=== PATIENT | male | born 1980 | race Caucasian/White ===

== ENCOUNTER 2017-03-24 02:16 | Emergency (ER) | payer OTHER, MEDICAID ==
[~2017-03-24] VITALS: Ht 188 cm; Wt 150.0 kg
[2017-03-24 02:21] VITALS: BP 217/116; PULSE 92; RESP 20; TEMP 99.7; O2SAT 98
[2017-03-24] MEDS ORDERED: SODIUM CHLOR 0.9% 1000 ML INJ 1,000 ML IV SCH (02:27)
[2017-03-24] MEDS ORDERED: SODIUM CHLORIDE 0.9% FLUSH 10 ML FLUSH IV FLUSH PRN (02:30)
[2017-03-24] MEDS ORDERED: ONDANSETRON HCL 4 MG/2 ML VIAL IVP ONE (02:30)
[2017-03-24] MEDS ORDERED: MORPHINE SULFATE 4 MG/ML INJ IV PUSH ONE ×2 (02:30→03:00)
--- NOTE | 2017-03-24 02:31 | PD ---
HPI Chief Complaint: Flank/Kidney Pain Time Seen by Provider: 02:22 Travel History International Travel<30 days: No Contact w/Intl Traveler<30days: No Traveled to known affect area: No History of Present Illness HPI The patient is a 37-year-old male who presents to the emergency department via EMS for right flank pain. The patient states he was diagnosed with a kidney stone 2 weeks ago and was seen at [facility]. The patient followed up with urologist, Dr. Meyer, and was scheduled for an outpatient x-ray to be performed today to evaluate the kidney stone. The patient states he kidney stone was measured at 7 mm, thinks it was distal in the ureter. The pain is sharp, located lower back and radiating to the flank and into the right testicle. The patient denies any testicular swelling, dysuria, frequency, urgency, or hematuria. He does complain of mild nausea related to the pain but denies any vomiting. Symptoms are moderate, possibly exacerbated by kidney stone, and there are no current alleviating factors. 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) Tetanus Vaccination: Unknown Influenza Vaccination: No Past Surgical History Narrative Surgical Low back surgery Social History Alcohol Use: No Tobacco Use: No (uses electronic cigarette) Substance Use: No Allergies-Medications (Allergen,Severity, Reaction): Coded Allergies: No Known Allergies (Unverified , 03/22/17) Reported Meds & Prescriptions Reported Meds & Active Scripts Active No Active Prescriptions or Reported Medications Review of Systems Except as stated in HPI: all other systems reviewed are Neg General / Constitutional: No: Fever Cardiovascular: No: Chest Pain or Discomfort Respiratory: No: Shortness of Breath Gastrointestinal: Positive: Nausea, Abdominal Pain, No: Vomiting Genitourinary: Positive: Flank Pain, No: Urgency, Frequency, Dysuria, Hematuria Physical Exam Narrative GENERAL: Awake, alert, pleasant 37-year-old male who appears his stated age and is in no acute respiratory distress. SKIN: Focused skin assessment warm/dry. HEAD: Atraumatic. Normocephalic. EYES: No injection or drainage. ENT: No nasal bleeding or discharge. Mucous membranes pink and moist. NECK: Trachea midline. No JVD. CARDIOVASCULAR: Regular rate and rhythm. No murmur appreciated. RESPIRATORY: No accessory muscle use. Clear to auscultation. Breath sounds equal bilaterally. GASTROINTESTINAL: Abdomen soft, tender palpation right lower quadrant and suprapubic. Back: No CVA tenderness. Mild right flank tenderness. MUSCULOSKELETAL: No obvious deformities. No clubbing. No cyanosis. No edema. NEUROLOGICAL: Awake and alert. No obvious cranial nerve deficits. Motor grossly within normal limits. Normal speech. PSYCHIATRIC: Appropriate mood and affect; insight and judgment normal. Data Data Last Documented VS Vital Signs Date Time Temp Pulse Resp B/P (MAP) Pulse Ox O2 Delivery O2 Flow Rate FiO2 03/24/17 02:58 81 18 196/95 (128) 99 Room Air 03/24/17 02:21 99.7 Orders Orders Basic Metabolic Panel (Bmp) (03/24/17 02:27) Complete Blood Count With Diff (03/24/17 02:27) Urinalysis - C+S If Indicated (03/24/17 02:27) Ct Abd/Pel W/O Iv Contrast (03/24/17 02:27) Iv Access Insert/Monitor (03/24/17 02:27) Ecg Monitoring (03/24/17 02:27) Oximetry (03/24/17 02:27) Morphine Inj (Morphine Inj) (03/24/17 02:30) Ondansetron Inj (Zofran Inj) (03/24/17 02:30) Sodium Chlor 0.9% 1000 Ml Inj (Ns 1000 M (03/24/17 02:27) Sodium Chloride 0.9% Flush (Ns Flush) (03/24/17 02:30) Ketorolac Inj (Toradol Inj) (03/24/17 02:45) Morphine Inj (Morphine Inj) (03/24/17 03:00) Labs Laboratory Tests Test 03/24/17 02:30 03/24/17 03:05 White Blood Count 16.7 TH/MM3 Red Blood Count 4.98 MIL/MM3 Hemoglobin 13.1 GM/DL Hematocrit 39.8 % Mean Corpuscular Volume 80.0 FL Mean Corpuscular Hemoglobin 26.4 PG Mean Corpuscular Hemoglobin Concent 33.0 % Red Cell Distribution Width 14.4 % Platelet Count 307 TH/MM3 Mean Platelet Volume 8.2 FL Neutrophils (%) (Auto) 75.4 % Lymphocytes (%) (Auto) 14.4 % Monocytes (%) (Auto) 8.5 % Eosinophils (%) (Auto) 1.4 % Basophils (%) (Auto) 0.3 % Neutrophils # (Auto) 12.6 TH/MM3 Lymphocytes # (Auto) 2.4 TH/MM3 Monocytes # (Auto) 1.4 TH/MM3 Eosinophils # (Auto) 0.2 TH/MM3 Basophils # (Auto) 0.0 TH/MM3 CBC Comment DIFF FINAL Differential Comment Blood Urea Nitrogen 12 MG/DL Creatinine 1.24 MG/DL Random Glucose 127 MG/DL Calcium Level 8.8 MG/DL Sodium Level 138 MEQ/L Potassium Level 3.4 MEQ/L Chloride Level 104 MEQ/L Carbon Dioxide Level 29.6 MEQ/L Anion Gap 4 MEQ/L Estimat Glomerular Filtration Rate 66 ML/MIN Urine Color LIGHT-YELLOW Urine Turbidity CLEAR Urine pH 6.5 Urine Specific [place] 1.009 Urine Protein NEG mg/dL Urine Glucose (UA) NEG mg/dL Urine Ketones NEG mg/dL Urine Occult Blood SMALL Urine Nitrite NEG Urine Bilirubin NEG Urine Urobilinogen LESS THAN 2.0 MG/DL Urine Leukocyte Esterase NEG Urine RBC 36 /hpf Urine WBC 1 /hpf Urine Mucus FEW /lpf Microscopic Urinalysis Comment CULT NOT INDICATED MDM Medical Decision Making Medical Screen Exam Complete: Yes Emergency Medical Condition: Yes Medical Record Reviewed: Yes Interpretation(s) Laboratory Tests Test 03/24/17 02:30 03/24/17 03:05 White Blood Count 16.7 TH/MM3 Red Blood Count 4.98 MIL/MM3 Hemoglobin 13.1 GM/DL Hematocrit 39.8 % Mean Corpuscular Volume 80.0 FL Mean Corpuscular Hemoglobin 26.4 PG Mean Corpuscular Hemoglobin Concent 33.0 % Red Cell Distribution Width 14.4 % Platelet Count 307 TH/MM3 Mean Platelet Volume 8.2 FL Neutrophils (%) (Auto) 75.4 % Lymphocytes (%) (Auto) 14.4 % Monocytes (%) (Auto) 8.5 % Eosinophils (%) (Auto) 1.4 % Basophils (%) (Auto) 0.3 % Neutrophils # (Auto) 12.6 TH/MM3 Lymphocytes # (Auto) 2.4 TH/MM3 Monocytes # (Auto) 1.4 TH/MM3 Eosinophils # (Auto) 0.2 TH/MM3 Basophils # (Auto) 0.0 TH/MM3 CBC Comment DIFF FINAL Differential Comment Blood Urea Nitrogen 12 MG/DL Creatinine 1.24 MG/DL Random Glucose 127 MG/DL Calcium Level 8.8 MG/DL Sodium Level 138 MEQ/L Potassium Level 3.4 MEQ/L Chloride Level 104 MEQ/L Carbon Dioxide Level 29.6 MEQ/L Anion Gap 4 MEQ/L Estimat Glomerular Filtration Rate 66 ML/MIN Urine Color LIGHT-YELLOW Urine Turbidity CLEAR Urine pH 6.5 Urine Specific [place] 1.009 Urine Protein NEG mg/dL Urine Glucose (UA) NEG mg/dL Urine Ketones NEG mg/dL Urine Occult Blood SMALL Urine Nitrite NEG Urine Bilirubin NEG Urine Urobilinogen LESS THAN 2.0 MG/DL Urine Leukocyte Esterase NEG Urine RBC 36 /hpf Urine WBC 1 /hpf Urine Mucus FEW /lpf Microscopic Urinalysis Comment CULT NOT INDICATED Last Impressions Abdomen/Pelvis CT 03/24/17 0227 Signed Impressions: Service Date/Time: Friday, March 24, 2017 02:26 - CONCLUSION: 1. 4 mm obstructing stone distal one third right ureter with moderate severity hydronephrosis. Adis Martins MD Differential Diagnosis Differential diagnosis includes nephrolithiasis, hydronephrosis, pyelonephritis , testicular torsion, atypical appendicitis, diverticulitis. Narrative Course IV was established, labs are drawn and sent, and the patient was placed on cardiac telemetry monitoring and continuous pulse oximetry monitoring. The patient was administered morphine, Zofran, Toradol, and IV fluids. Noncontrast CT of the abdomen and pelvis was obtained. UA reveals RBCs and blood, no evidence of infection. Creatinine is normal. CT reveals a 4 mm stone with moderate hydronephrosis. The morphine did improve the abdominal pain, however, the back pain continues. The patient was redosed with a second dose of morphine and continued to have pain. Therefore, the patient received Dilaudid 0.5 mg intravenously. Diagnosis Primary Impression: Nephrolithiasis Patient Instructions: General Instructions Additional Instructions: Please provide the patient a copy of his CT results and lab results at discharge. Pain medications as directed. Follow-up with your urologist, Dr. Meyer, today if possible. Med/Other Pt SpecificInfo: Prescription(s) given Scripts Tamsulosin (Flomax) 0.4 Mg Cap 0.4 MG PO HS for Manage Prostate Problems, #7 CAP 0 Refills Prov: Marques Gloria MD 03/24/17 Ibuprofen (Ibuprofen) 600 Mg Tab 600 MG PO Q6H Y for Pain/Inflammation, #20 TAB 0 Refills Prov: Marques Gloria MD 03/24/17 Oxycodone-Acetaminophen (Percocet) 2.5-325 mg Tab 1 TAB PO Q6H Y for PAIN SCALE 1 TO 10, #20 TAB 0 Refills Prov: Marques Gloria MD 03/24/17 Disposition: 01 DISCHARGE HOME Condition: Stable Marques Gloria MD Mar 24, 2017 02:31
[2017-03-24 02:43] LABS: AUTOMATED NEUTROPHIL # 12.6 TH/MM3 (1.8-7.7); BASOPHIL % 0.3 % (0.0-2.0); EOSINOPHIL # 0.2 TH/MM3 (0-0.4); EOSINOPHIL % 1.4 % (0.0-4.0); HEMATOCRIT 39.8 % (39.0-51.0); HEMO FLAGS DIFF FINAL; LYMPH % 14.4 % (9.0-44.0); LYMPHOCYTE # 2.4 TH/MM3 (1.0-4.8); MEAN CORPUSCULAR HEMOGLOBIN 26.4 PG (27.0-34.0); MONO % 8.5 % (0.0-8.0); NEUT % 75.4 % (16.0-70.0); PLATELET COUNT 307 TH/MM3 (150-450); RED BLOOD COUNT 4.98 MIL/MM3 (4.50-5.90); RED CELL DISTRIBUTION WIDTH 14.4 % (11.6-17.2); WHITE BLOOD COUNT 16.7 TH/MM3 (4.0-11.0)
[2017-03-24] MEDS ORDERED: KETOROLAC TROMETHAMINE 30 MG/ML (IVP) VIAL IV PUSH ONE (02:45)
[2017-03-24 02:57] LABS: BICARBONATE 29.6 MEQ/L (21.0-32.0); POTASSIUM 3.4 MEQ/L (3.5-5.1)
[2017-03-24 02:58] VITALS: BP 196/95; PULSE 81; RESP 18; O2SAT 99
--- NOTE | 2017-03-24 03:20 | RADRPT ---
EXAM DATE/TIME: 03/24/2017 02:26 [facility] COMPARISON: No previous studies available for comparison. INDICATIONS : Right flank pain. ORAL CONTRAST: No oral contrast ingested. RADIATION DOSE: 33.47 CTDIvol (mGy) ; High dose protocol; Patient body habitus MEDICAL HISTORY : Renal calculi. Hypertension. SURGICAL HISTORY : Lumbar surgery. ENCOUNTER: Initial ACUITY: 1 week PAIN SCALE: 8/10 LOCATION: Right flank TECHNIQUE: Volumetric scanning of the abdomen and pelvis was performed. Using automated exposure control and ad justment of the mA and/or kV according to patient size, radiation dose was kept as low as reasonably achievable to obtain optimal diagnostic quality images. DICOM format image data is available electro nically for review and comparison. FINDINGS: Right side: Moderate severity hydronephrosis and mild dilation of the right ureter to the distal one third where there is an obstructing 4 mm calcified stone. No additional calcified stones seen in the collecting system. Left side: No calcified stones, hydronephrosis, or dilation of the ureter. A 1.9 cm cyst lower pole. Bladder: No calcified stones. Smooth margins. Other: No dilated loops of small or large bowel. No gallstones. No free fluid. Multiple bilateral inguina l nodes measuring up to 1.9 cm. CONCLUSION: 1. 4 mm obstructing stone distal one third right ureter with moderate severity hydronephrosis. Adis Martins MD on March 24, 2017 at 3:13 Board Certified Radiologist. This report was verified electronically.
[2017-03-24 03:34] LABS: BLOOD, URINE SMALL (NEG); COMMENT (UR) CULT NOT INDICATED; CULTURE IF INDICATED CULT NOT INDICATED; GLUCOSE,URINE NEG (NEG); KETONE, URINE NEG (NEG); MUCUS URINE FEW /lpf (OCC); NITRITE,URINE NEG (NEG); PH, URINE 6.5 (5.0-8.5); URINE COLOR LIGHT-YELLOW (YELLW/STRAW)
[2017-03-24] MEDS ORDERED: IBUP-232 PO (03:48)
[2017-03-24] MEDS ORDERED: TAMS5CAP PO (03:48)
[2017-03-24] MEDS ORDERED: PERC2.5T PO (03:48)
[2017-03-24 03:53] VITALS: BP 168/79; PULSE 72; RESP 20; O2SAT 96
[2017-03-24] MEDS ORDERED: HYDROmorphone HCL PF 1 MG/ML VIAL IV PUSH ONE (04:00)
[2017-03-24 04:45] VITALS: BP 145/73
[2017-03-31] MEDS ORDERED: PERC5TAB12 PO (11:50)
[2017-03-31] MEDS ORDERED: CEPH-460 PO (11:50)
== END 2017-03-24 04:46 | disposition home or self-care (01) ==
LOC: NEPE 02:16
DX: N13.2 Hydronephrosis with renal and ureteral calculous obstruction (principal)
CPT/HCPCS: 74176; 80048; 81001; 85025; 96361; 96374; 96375; 96376; 99285; J1170; J1885; J2270; J2405; J7030

== ENCOUNTER 2017-03-31 19:58 | Emergency (ER) | payer OTHER, MEDICAID ==
[~2017-03-31 19:58] MED LIST changes: -CHLORHEXIDINE GLUCONATE 2 % 1 PACK (2 CLOTHS) TOPICAL PRN; -DEXAMETHASONE SOD PHOS 4 MG/ML VIAL IV ONE; -DO NOT ADM ANY ANTICOAGULANT DRUGS PRN; -FAMOTIDINE 20 MG/2 ML VIAL ONE; -GLYCOPYRROLATE 1 MG/5 ML SYRINGE IV PUSH ONE; -INSULIN HUMAN REGULAR 1,000 UNITS/10 ML VIAL SQ PRN; -IOHEXOL 350 MG/ML 50 ML BTL (for RAD DIAG) OTHER ONE; -LACTATED RINGER'S 1000 ML IV PRN; -LIDOCAINE HCL 1% PF 5 ML AMPULE OTHER ONE; -METOPROLOL TARTRATE 25 MG TAB PO PRN; -MIDAZOLAM HCL 2 MG/2 ML VIAL IV ONE; -NEOSTIGMINE 3 MG/3 ML SYR IV ONE; -ONDANSETRON HCL 4 MG/2 ML VIAL IV PUSH ONE; -ONDANSETRON HCL 4 MG/2 ML VIAL IV PUSH PRN; -POVIDONE IODINE 5% (ANTISEPSIS KIT) 4 APPLICATIONS EACH NARE PRN; -PROPOFOL 200 MG/20 ML AMP IV ONE; -ROCURONIUM INJ 50 MG/5 ML SYRINGE IV PUSH ONE; -SODIUM CHLORID 0.9% 500 ML IV PRN; -ceFAZolin 2 GM PREMIX 50 ML IV SCH; -oxyCODONE/ACETAMINOPHEN 5 MG/325 MG TAB PO PRN
[2017-03-31 20:00] VITALS: BP 220/100; PULSE 72; RESP 15; TEMP 98.3; O2SAT 96
[2017-03-31 21:46] VITALS: BP 188/95; PULSE 72; RESP 16; O2SAT 98
[2017-03-31] MEDS ORDERED: SODIUM CHLOR 0.9% 1000 ML INJ 1,000 ML IV SCH (21:51)
[2017-03-31] MEDS ORDERED: ONDANSETRON HCL 4 MG/2 ML VIAL IVP ONE (22:00)
[2017-03-31] MEDS ORDERED: SODIUM CHLORIDE 0.9% FLUSH 10 ML FLUSH IV FLUSH PRN (22:00)
[2017-03-31] MEDS ORDERED: MORPHINE SULFATE 4 MG/ML INJ IV PUSH ONE (22:00)
--- NOTE | 2017-03-31 22:08 | PD ---
HPI Chief Complaint: GI Complaint Time Seen by Provider: 21:43 Travel History International Travel<30 days: No Contact w/Intl Traveler<30days: No Traveled to known affect area: No History of Present Illness HPI Patient comes emergency Department complaining of abdominal pain and right flank pain status post having a procedure done today for renal calculi. Patient states that after the procedure he went home and has been having pain and vomiting since. Patient reports he has not been able to keep down any medication or anything else. Patient denies any blood in the vomit reports is nonbilious. Patient states he's had some hematuria since that he procedure. Patient describes pain is a sharp stabbing pain without radiation to his back and pressure-like in his abdomen without radiation. Denies anything making this better or worse. Patient states he called his urologist told him to the emergency department. Denies any fever, chest pain, shortness breath, headache , numbness or tingling anywhere. 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, LOWER BACK, OA) Neurologic: No Psychiatric: No Reproductive: No Respiratory: No Thyroid Disease: No Tetanus Vaccination: Unknown Influenza Vaccination: No ?: Not Past Surgical History Abdominal Surgery: No AICD: No Cardiac Surgery: No Ear Surgery: No Eye Surgery: No Genitourinary Surgery: Yes (CYSTOSCOPY/URETEROSCOPY) Joint Replacement: No Oral Surgery: No Pacemaker: No Thoracic Surgery: No Social History Alcohol Use: No Tobacco Use: No (uses electronic cigarette) Substance Use: No Allergies-Medications (Allergen,Severity, Reaction): Coded Allergies: No Known Allergies (Unverified , 03/31/17) Reported Meds & Prescriptions Reported Meds & Active Scripts Active Percocet (Oxycodone-Acetaminophen) 5-325 mg Tab 1-2 Tab PO Q6H PRN Flomax (Tamsulosin HCl) 0.4 Mg Cap 0.4 Mg PO HS Percocet (Oxycodone-Acetaminophen) 2.5-325 mg Tab 1 Tab PO Q6H PRN Review of Systems Except as stated in HPI: all other systems reviewed are Neg Physical Exam Narrative GENERAL: Well-developed, overly nourished, in no acute distress, and non-ill appearing. SKIN: Focused skin assessment warm and dry. HEAD: Atraumatic. Normocephalic. EYES: Pupils equal and round. EOMI. No scleral icterus. No injection or drainage. ENT: No nasal bleeding or discharge. Mucous membranes pink and moist. NECK: Trachea midline. Supple. No nuclear rigidity. CARDIOVASCULAR: Regular rate and rhythm. No murmur appreciated. RESPIRATORY: No accessory muscle use. No respiratory distress. Clear to auscultation. Breath sounds equal bilaterally. GASTROINTESTINAL: Abdomen soft, non-tender, nondistended, and no guarding. Hepatic and splenic margins not palpable. Normal bowel sounds 4. No pulsatile mass. Patient reports tenderness to right low back just inferior to CVA. MUSCULOSKELETAL: No obvious deformities. No clubbing. No cyanosis. No edema. Full range of motion. NEUROLOGICAL: Awake and alert. No obvious cranial nerve deficits. Motor grossly within normal limits. Normal speech. PSYCHIATRIC: Appropriate mood and affect; insight and judgment normal. Data Data Last Documented VS Vital Signs Date Time Temp Pulse Resp B/P (MAP) Pulse Ox O2 Delivery O2 Flow Rate FiO2 03/31/17 22:10 16 98 Room Air 03/31/17 21:46 72 03/31/17 20:00 98.3 Orders Orders Complete Blood Count With Diff (03/31/17 21:51) Comprehensive Metabolic Panel (03/31/17 21:51) Lipase (03/31/17 21:51) Prothrombin Time / Inr (Pt) (03/31/17 21:51) Act Partial Throm Time (Ptt) (03/31/17 21:51) Urinalysis - C+S If Indicated (03/31/17 21:51) Ct Abd/Pel W/O Iv Contrast (03/31/17 21:51) Iv Access Insert/Monitor (03/31/17 21:51) Ecg Monitoring (03/31/17 21:51) Oximetry (03/31/17 21:51) Morphine Inj (Morphine Inj) (03/31/17 22:00) Ondansetron Inj (Zofran Inj) (03/31/17 22:00) Sodium Chlor 0.9% 1000 Ml Inj (Ns 1000 M (03/31/17 21:51) Sodium Chloride 0.9% Flush (Ns Flush) (03/31/17 22:00) Labs Laboratory Tests Test 03/31/17 22:05 White Blood Count 17.3 TH/MM3 Red Blood Count 5.35 MIL/MM3 Hemoglobin 14.1 GM/DL Hematocrit 42.9 % Mean Corpuscular Volume 80.3 FL Mean Corpuscular Hemoglobin 26.4 PG Mean Corpuscular Hemoglobin Concent 32.8 % Red Cell Distribution Width 14.2 % Platelet Count 393 TH/MM3 Mean Platelet Volume 8.4 FL Neutrophils (%) (Auto) 84.9 % Lymphocytes (%) (Auto) 9.3 % Monocytes (%) (Auto) 5.6 % Eosinophils (%) (Auto) 0.0 % Basophils (%) (Auto) 0.2 % Neutrophils # (Auto) 14.7 TH/MM3 Lymphocytes # (Auto) 1.6 TH/MM3 Monocytes # (Auto) 1.0 TH/MM3 Eosinophils # (Auto) 0.0 TH/MM3 Basophils # (Auto) 0.0 TH/MM3 CBC Comment DIFF FINAL Differential Comment MDM Medical Decision Making Medical Screen Exam Complete: Yes Emergency Medical Condition: Yes Differential Diagnosis Abdominal pain, nausea vomiting, postop complication, electrolyte abnormality, dehydration, appendicitis, other Narrative Course Patient was seen and examined. Initial laboratory and radiological studies were ordered. Patient was given IV fluid, IV Zofran, IV morphine. Patient was signed out to Dr. Waite the end of my shift. Please see his documentation for final diagnosis and disposition. Jacob King Mar 31, 2017 22:08
[2017-03-31 22:10] VITALS: RESP 16; O2SAT 98
[2017-03-31 22:24] LABS: AUTOMATED NEUTROPHIL # 14.7 TH/MM3 (1.8-7.7); BASOPHIL % 0.2 % (0.0-2.0); HEMATOCRIT 42.9 % (39.0-51.0); HEMO FLAGS DIFF FINAL; LYMPH % 9.3 % (9.0-44.0); LYMPHOCYTE # 1.6 TH/MM3 (1.0-4.8); MEAN CELL VOLUME 80.3 FL (80.0-100.0); MEAN CORPUSCULAR HEMOGLOBIN 26.4 PG (27.0-34.0); MEAN CORPUSCULAR HGB CONC 32.8 % (32.0-36.0); MONO % 5.6 % (0.0-8.0); NEUT % 84.9 % (16.0-70.0); PLATELET COUNT 393 TH/MM3 (150-450); RED BLOOD COUNT 5.35 MIL/MM3 (4.50-5.90); RED CELL DISTRIBUTION WIDTH 14.2 % (11.6-17.2); WHITE BLOOD COUNT 17.3 TH/MM3 (4.0-11.0)
[2017-03-31 22:39] LABS: APTT (PATIENT) 26.8 SEC (24.3-30.1); PROTHROMBIN TIME - PATIENT 11.2 SEC (9.8-11.6)
[2017-03-31 22:48] LABS: ALT (GPT) 29 U/L (12-78)
[2017-03-31 22:51] LABS: ALKALINE PHOSPHATASE 68 U/L (45-117); TOTAL BILIRUBIN ADULT 0.8 MG/DL (0.2-1.0)
--- NOTE | 2017-03-31 23:01 | RADRPT ---
EXAM DATE/TIME: 03/31/2017 22:28 [facility] COMPARISON: CT ABDOMEN & PELVIS W/O CONTRAST, March 24, 2017, 2:26. INDICATIONS : Right flank pain with hematuria. Patient had cystoscopy and ureteroscopy done today. ORAL CONTRAST: No oral contrast ingested. RADIATION DOSE: 16.98 CTDIvol (mGy) MEDICAL HISTORY : Renal calculi. Hypertension. SURGICAL HISTORY : None. ENCOUNTER: Initial ACUITY: 1 day PAIN SCALE: 10/10 LOCATION: Right flank TECHNIQUE: Volumetric scanning of the abdomen and pelvis was performed. Using automated exposure control and ad justment of the mA and/or kV according to patient size, radiation dose was kept as low as reasonably achievable to obtain optimal diagnostic quality images. DICOM format image data is available electro nically for review and comparison. FINDINGS: LOWER LUNGS: The visualized lower lungs are clear. LIVER: Homogeneous density without lesion. There is no dilation of the biliary tree. No calcified gallston es. SPLEEN: Normal size without lesion. PANCREAS: Within normal limits. KIDNEYS: Previously seen right renal stone is no longer present but there is mild right hydronephrosis and hyd roureter, presumably residual or related to acute urothelial irritation. No mass or significant blood /clot demonstrated within the bladder. Left kidney and left ureter are normal. ADRENAL GLANDS: Within normal limits. VASCULAR: There is no aortic aneurysm. BOWEL/MESENTERY: The stomach, small bowel, and colon demonstrate no acute abnormality. There is no free intraperitone al air or fluid. ABDOMINAL WALL: Within normal limits. RETROPERITONEUM: There is no lymphadenopathy. BLADDER: No wall thickening or mass. REPRODUCTIVE: Within normal limits. INGUINAL: There is no lymphadenopathy or hernia. MUSCULOSKELETAL: Within normal limits for patient age. CONCLUSION: Right ureteral stone removed. Persistent hydronephrosis/hydroureter not significantly changed, danielle marmolejo Please see above. Mason Bauman MD on March 31, 2017 at 22:56 Board Certified Radiologist. This report was verified electronically.
[2017-03-31 23:04] LABS: ANION GAP 7 MEQ/L (5-15); AST (GOT) 21 U/L (15-37); BICARBONATE 26.6 MEQ/L (21.0-32.0); BLOOD UREA NITROGEN 15 MG/DL (7-18); CHLORIDE 102 MEQ/L (98-107); GLOMERULAR FILTRATION RATE 58 ML/MIN (>89); POTASSIUM 4.3 MEQ/L (3.5-5.1); SODIUM (NA) 136 MEQ/L (136-145)
[2017-04-01] MEDS ORDERED: MORPHINE SULFATE 4 MG/ML INJ IV PUSH ONE (00:45)
[2017-04-01 01:02] LABS: BACTERIA, URINE OCC /hpf; BLOOD, URINE LARGE (NEG); COMMENT (UR) CULTURE INDICATED; CULTURE IF INDICATED CULTURE INDICATED; GLUCOSE,URINE NEG (NEG); HYALINE CAST, URINE 5 /lpf (RARE); KETONE, URINE TRACE mg/dL (NEG); MUCUS URINE FEW /lpf (OCC); NITRITE,URINE NEG (NEG); PH, URINE 6.5 (5.0-8.5)
[2017-04-01 01:05] LABS: URINE COLOR LIGHT-RED (YELLW/STRAW)
--- NOTE | 2017-04-01 01:26 | PD ---
Data Data Last Documented VS Vital Signs Date Time Temp Pulse Resp B/P (MAP) Pulse Ox O2 Delivery O2 Flow Rate FiO2 03/31/17 22:10 16 98 Room Air 03/31/17 21:46 72 03/31/17 20:00 98.3 Orders Orders Complete Blood Count With Diff (03/31/17 21:51) Comprehensive Metabolic Panel (03/31/17 21:51) Lipase (03/31/17 21:51) Prothrombin Time / Inr (Pt) (03/31/17 21:51) Act Partial Throm Time (Ptt) (03/31/17 21:51) Urinalysis - C+S If Indicated (03/31/17 21:51) Ct Abd/Pel W/O Iv Contrast (03/31/17 21:51) Iv Access Insert/Monitor (03/31/17 21:51) Ecg Monitoring (03/31/17 21:51) Oximetry (03/31/17 21:51) Morphine Inj (Morphine Inj) (03/31/17 22:00) Ondansetron Inj (Zofran Inj) (03/31/17 22:00) Sodium Chlor 0.9% 1000 Ml Inj (Ns 1000 M (03/31/17 21:51) Sodium Chloride 0.9% Flush (Ns Flush) (03/31/17 22:00) Morphine Inj (Morphine Inj) (04/01/17 00:45) Urine Culture (04/01/17 00:10) Labs Laboratory Tests Test 03/31/17 22:05 04/01/17 00:10 White Blood Count 17.3 TH/MM3 Red Blood Count 5.35 MIL/MM3 Hemoglobin 14.1 GM/DL Hematocrit 42.9 % Mean Corpuscular Volume 80.3 FL Mean Corpuscular Hemoglobin 26.4 PG Mean Corpuscular Hemoglobin Concent 32.8 % Red Cell Distribution Width 14.2 % Platelet Count 393 TH/MM3 Mean Platelet Volume 8.4 FL Neutrophils (%) (Auto) 84.9 % Lymphocytes (%) (Auto) 9.3 % Monocytes (%) (Auto) 5.6 % Eosinophils (%) (Auto) 0.0 % Basophils (%) (Auto) 0.2 % Neutrophils # (Auto) 14.7 TH/MM3 Lymphocytes # (Auto) 1.6 TH/MM3 Monocytes # (Auto) 1.0 TH/MM3 Eosinophils # (Auto) 0.0 TH/MM3 Basophils # (Auto) 0.0 TH/MM3 CBC Comment DIFF FINAL Differential Comment Prothrombin Time 11.2 SEC Prothromb Time International Ratio 1.0 RATIO Activated Partial Thromboplast Time 26.8 SEC Blood Urea Nitrogen 15 MG/DL Creatinine 1.39 MG/DL Random Glucose 112 MG/DL Total Protein 8.8 GM/DL Albumin 4.0 GM/DL Calcium Level 9.1 MG/DL Alkaline Phosphatase 68 U/L Aspartate Amino Transf (AST/SGOT) 21 U/L Alanine Aminotransferase (ALT/SGPT) 29 U/L Total Bilirubin 0.8 MG/DL Sodium Level 136 MEQ/L Potassium Level 4.3 MEQ/L Chloride Level 102 MEQ/L Carbon Dioxide Level 26.6 MEQ/L Anion Gap 7 MEQ/L Estimat Glomerular Filtration Rate 58 ML/MIN Lipase 70 U/L Urine Color LIGHT-RED Urine Turbidity HAZY Urine pH 6.5 Urine Specific [place] 1.015 Urine Protein 30 mg/dL Urine Glucose (UA) NEG mg/dL Urine Ketones TRACE mg/dL Urine Occult Blood LARGE Urine Nitrite NEG Urine Bilirubin NEG Urine Urobilinogen LESS THAN 2.0 MG/DL Urine Leukocyte Esterase SMALL Urine RBC /hpf Urine WBC 53 /hpf Urine Bacteria OCC /hpf Urine Hyaline Casts 5 /lpf Urine Mucus FEW /lpf Microscopic Urinalysis Comment CULTURE INDICATED MDM Supervised Visit with RYDER: Yes Narrative Course The history, exam, and medical decision-making in the associated mid-level provider note were completed with my assistance. I reviewed and agree with the findings presented. I attest that I had a [id number] encounter with the patient on the same day, and personally performed and documented my assessment and findings in the medical record. *My assessment and Findings: 37-year-old man, status post removal of renal stone ureteroscopy today. Here with pain and vomiting. Looks well. No vomiting started been here. CT shows some persistent hydronephrosis. CBC was some leukocytosis. CMP unremarkable. Lipase is normal. UA with hematuria. Patient feeling improved. Recommend outpatient follow-up. Diagnosis Primary Impression: Flank pain Additional Instruction: Follow-up with your urologist in the next 2-4 days. The emergency department for any new or worsening symptoms. Med/Other Pt SpecificInfo: No Change to Meds Disposition: DISCHARGE HOME Condition: Stable Marcelino Waite MD Apr 01, 2017 01:26
== END 2017-04-01 02:21 | disposition home or self-care (01) ==
LOC: NEPE 19:58
DX: R10.9 Unspecified abdominal pain (principal); R11.10 Vomiting, unspecified; N13.30 Unspecified hydronephrosis; D72.829 Elevated white blood cell count, unspecified; R31.9 Hematuria, unspecified; M19.90 Unspecified osteoarthritis, unspecified site; I10 Essential (primary) hypertension; Z79.899 Other long term (current) drug therapy
CPT/HCPCS: 74176; 80053; 81001; 83690; 85025; 85610; 85730; 87086; 96361; 96374; 96375; 96376; 99285; J2270; J2405; J7030

== ENCOUNTER → 2017-03-31 | Day surgery (SDC) | payer OTHER, MEDICAID ==
[~2017-03-31] VITALS: Ht 188 cm; Wt 160.4 kg
[~2017-03-31] MED LIST: CEPH-460 PO; CHLORHEXIDINE GLUCONATE 2 % 1 PACK (2 CLOTHS) TOPICAL PRN; DEXAMETHASONE SOD PHOS 4 MG/ML VIAL IV ONE; DO NOT ADM ANY ANTICOAGULANT DRUGS PRN; FAMOTIDINE 20 MG/2 ML VIAL ONE; GLYCOPYRROLATE 1 MG/5 ML SYRINGE IV PUSH ONE; IBUP-232 PO; INSULIN HUMAN REGULAR 1,000 UNITS/10 ML VIAL SQ PRN; IOHEXOL 350 MG/ML 50 ML BTL (for RAD DIAG) OTHER ONE; LACTATED RINGER'S 1000 ML IV PRN; LIDOCAINE HCL 1% PF 5 ML AMPULE OTHER ONE; METOPROLOL TARTRATE 25 MG TAB PO PRN; MIDAZOLAM HCL 2 MG/2 ML VIAL IV ONE; NEOSTIGMINE 3 MG/3 ML SYR IV ONE; ONDANSETRON HCL 4 MG/2 ML VIAL IV PUSH ONE; ONDANSETRON HCL 4 MG/2 ML VIAL IV PUSH PRN; PERC2.5T PO; PERC5TAB12 PO; POVIDONE IODINE 5% (ANTISEPSIS KIT) 4 APPLICATIONS EACH NARE PRN; PROPOFOL 200 MG/20 ML AMP IV ONE; ROCURONIUM INJ 50 MG/5 ML SYRINGE IV PUSH ONE; SODIUM CHLORID 0.9% 500 ML IV PRN; TAMS5CAP PO; ceFAZolin 2 GM PREMIX 50 ML IV SCH; oxyCODONE/ACETAMINOPHEN 5 MG/325 MG TAB PO PRN
--- NOTE | 2017-03-31 11:49 | PD.OP ---
Operative Report Date of Surgery: Mar 31, 2017 Preoperative Diagnosis: (1) Ureteral calculus, right Postoperative Diagnosis: (1) Ureteral calculus, right Procedure: Cystoscopy, right retrograde pyelogram, right ureteroscopy with laser lithotripsy and right ureteral catheter placement Anesthesia: General Surgeon: Alireza Meyer Slip Filler(s): None Operation and Findings: Indication for procedure: Case of a pleasant 37-year-old gentleman with a right distal ureteral calculus who presents to undergo right ureteroscopy with laser lithotripsy. Operative procedure in detail: Patient was brought to the operating suite and placed supine on the OR table. He was then placed under general anesthesia. He was then repositioned in the dorsolithotomy position and prepped and draped in normal sterile fashion. After the appropriate timeout was undertaken proceeded with cystoscopic evaluation utilizing the rigid cystoscope with a 20 Filipino sheath and 30 lens. The urethra was patent without stricture formation , the prostatic urethra was not obstructing further passive cystoscope within the urinary bladder revealed the right left ureteral orifices to be in correct anatomic position. Sluggish drainage of urine on the right and clear drainage on the left. There were no bladder mucosal lesions, calculi or diverticula formation noted. I then proceeded with passing a sensor 0.035 wire up the patient's right ureter. Upon advancing the wire approximately 2 cm from the ureteral orifice some resistance was met. This was confirmed to be the obstructing stone on fluoroscopy. The wire was able to be negotiated around the stone and further advanced up into the right renal pelvis. The cystoscope was withdrawn and the wire was secured to a sterile drape with hemostat. The self dilating ureteroscope was then advanced along side the previously placed wire. A second wire was advanced to the lumen of the ureteroscope to facilitate scope passage. I was able to advance the scope up to the point of the obstructing stone. The intraluminal wire was exchanged for a holmium laser fiber 200 in size. I then proceeded with laser lithotripsy of the obstructing ureteral calculus. Once the stone was broken up to utilize the 2.4 Filipino basket and extracted one of the largest segments to be sent off for chemical composition analysis. The ureteroscope was withdrawn and the cystoscope was reintroduced. A 6 Filipino open-ended catheter was back loaded through the cystoscope and advanced up the wire all the way to the right renal pelvis and the wire withdrawn. A retrograde pyelogram study was performed to outline the collecting system and confirmed that the open-ended catheter was in good position. The bladder was exchanged of all irrigant fluid and cystoscope was withdrawn. A 16 Filipino 10 cc Villatoro catheter was then placed. The right open-ended ureteral catheter was next taken to the Villatoro via a connector and both catheters placed to gravity drainage. The patient tolerated the procedures without complications and was transferred to the PACU in satisfactory condition. Alireza Meyer MD Mar 31, 2017 11:49
[2017-03-31 13:31] VITALS: BP 171/97; PULSE 67; RESP 18; O2SAT 97
== END | disposition home or self-care (01) ==
LOC: HSDC 08:53
PROVIDERS: ATTEND Urology
DX: N20.1 Calculus of ureter (principal); F17.210 Nicotine dependence, cigarettes, uncomplicated; I10 Essential (primary) hypertension; G47.30 Sleep apnea, unspecified; M19.90 Unspecified osteoarthritis, unspecified site
CPT/HCPCS: 00918; 52353; 74420; 82365; 82370; 88300; C1726; C1769; J0690; J1100; J2250; J2405; J2710; J3010; J7120; Q9967